=== PATIENT | female | born 1980 | race Hispanic/Latino ===

== ENCOUNTER 2023-09-05 09:35 | Day surgery (SDC) | payer OTHER ==
[2023-09-03 12:00] VITALS: BMI 37.9
[2023-09-05] MEDS ORDERED: Bupivacaine PF 0.5% 30 ML VIAL ONE (09:39)
[2023-09-05] MEDS ORDERED: EPINEPHrine 1 MG/ML VIAL ONE (09:39)
[2023-09-05] MEDS ORDERED: CEFAZOLIN 2 GM VIAL ONE (09:46)
[2023-09-05] MEDS ORDERED: Rocuronium Bromide 10 MG/ML (10ML VIAL) ONE (09:51)
[2023-09-05] MEDS ORDERED: Dexamethasone 4 mg/ml Vial ONE (09:51)
[2023-09-05] MEDS ORDERED: Ondansetron PF 4 MG/2 ML Vial ONE (09:51)
[2023-09-05] MEDS ORDERED: fentaNYL 50 mcg/mL 1 mL Vial ONE ×2 (09:51→10:49)
[2023-09-05] MEDS ORDERED: Esmolol 100 MG/10 ML VIAL ONE (09:51)
[2023-09-05] MEDS ORDERED: PROPOFOL 20 ML ONE (09:51)
[2023-09-05] MEDS ORDERED: Midazolam HCl 2 mg/2 ml Vial ONE ×2 (09:51)
[2023-09-05] MEDS ORDERED: Lidocaine 1% PF 5 ML VIAL ONE (09:54)
[2023-09-05] MEDS ORDERED: Ketorolac Tromethamine 30 MG (1 mL) VIAL ONE (10:24)
[2023-09-05] MEDS ORDERED: HYDROcodone/Acetaminophen 5/325 mg Tablet PO PRN (10:54)
[2023-09-05] MEDS ORDERED: Acetaminophen 325 MG TAB PO PRN (10:54)
[2023-09-05] MEDS ORDERED: HYDROcodone/Acetaminophen 5/325 mg Tablet ONE (11:49)
== END 2023-09-05 13:20 | disposition home or self-care (01) ==
LOC: CSHSDC 09:35
PROVIDERS: ATTEND Surgery
PROC: 0FT44ZZ Resection of Gallbladder, Percutaneous Endoscopic Approach (ICD-10-PCS; principal; 2023-09-05)
DX: K81.1 Chronic cholecystitis (principal); K82.8 Other specified diseases of gallbladder; K21.9 Gastro-esophageal reflux disease without esophagitis; I10 Essential (primary) hypertension; E66.01 Morbid (severe) obesity due to excess calories; Z68.37 Body mass index [BMI] 37.0-37.9, adult; Z79.899 Other long term (current) drug therapy
CPT/HCPCS: 88304; C1889; J0171; J0665; J1100; J1885; J2250; J2405; J2704; J3010